=== PATIENT | female | born 1990 | race Caucasian/White ===

== ENCOUNTER 2022-06-19 01:35 | Emergency (ER) | payer MEDICAID ==
[2022-06-19] MEDS: Sodium Chloride 0.9% 1,000 ML IV ONE (02:23)
[2022-06-19] MEDS: Sodium Chloride 0.9% 2.5 ML Syringe FLUSH PRN (02:26)
[2022-06-19] MEDS: Sodium Chloride 0.9% 10 ML Syringe FLUSH PRN (02:26)
[2022-06-19] MEDS: Ketorolac 30 MG/ML SDV IVPUSH ONE (02:27)
[2022-06-19] MEDS: Ondansetron 4 MG/2 ML SDV IVPUSH ONE (02:27)
[2022-06-19] MEDS: HYDROmorphone 1 MG/ML Syringe IVPUSH ONE (02:29)
[2022-06-19 03:24] LABS: POTASSIUM,K 3.9 mmol/L (3.5-5.1)
== END 2022-06-19 04:41 | disposition home or self-care (01) ==
LOC: MW.ED 01:35
DX: R10.9 Unspecified abdominal pain (principal); I10 Essential (primary) hypertension; F17.210 Nicotine dependence, cigarettes, uncomplicated
CPT/HCPCS: 36415; 74176; 80053; 81001; 84443; 85025; 87086; 96361; 96374; 96375; 99284; J1170; J1885; J2405; J3490; J7030

== ENCOUNTER 2022-06-19 21:22 | Emergency (ER) | payer MEDICAID ==
[2022-06-19] MEDS ORDERED: HYDROmorphone 1 MG/ML Syringe IVPUSH ONE (22:06)
[2022-06-19] MEDS ORDERED: Ketorolac 30 MG/ML SDV IVPUSH ONE (22:06)
[2022-06-19] MEDS ORDERED: Ondansetron 4 MG/2 ML SDV IVPUSH ONE (22:06)
[2022-06-19] MEDS ORDERED: Sodium Chloride 0.9% 2.5 ML Syringe FLUSH PRN (22:06)
[2022-06-19] MEDS ORDERED: Sodium Chloride 0.9% 10 ML Syringe FLUSH PRN (22:06)
[2022-06-19] MEDS ORDERED: Sodium Chloride 0.9% 1,000 ML IV ONE (22:06)
[2022-06-19] MEDS ORDERED: Iopamidol 755 Mg/ML 100 ML Bottle IVPUSH ONE (22:39)
[2022-06-19 23:04] LABS: CARBON DIOXIDE,CO2 24.6 mmol/L (21.0-32.0); POTASSIUM,K 3.8 mmol/L (3.5-5.1)
[2022-06-19] MEDS ORDERED: fentaNYL 50 MCG/ML SDV IVPUSH ONE (23:42)
== END 2022-06-20 00:12 | disposition home or self-care (01) ==
LOC: MW.ED 21:22
DX: R10.9 Unspecified abdominal pain (principal); I10 Essential (primary) hypertension; Z79.899 Other long term (current) drug therapy
CPT/HCPCS: 36415; 74177; 80053; 81001; 83605; 83690; 85025; 87040; 96361; 96374; 96375; 99284; J1170; J1885; J2405; J3010; J3490; J7030; Q9967

== ENCOUNTER 2022-06-23 18:35 | Emergency (ER) | payer MEDICAID ==
[2022-06-23] MEDS ORDERED: Sodium Chloride 0.9% 1,000 ML IV ONE ×2 (18:44→20:07)
[2022-06-23] MEDS ORDERED: Acetaminophen 500 MG Tab PO ONE (18:47)
[2022-06-23] MEDS ORDERED: Ketorolac 30 MG/ML SDV IVPUSH ONE (19:24)
[2022-06-23 19:46] LABS: CARBON DIOXIDE,CO2 22.7 mmol/L (21.0-32.0); POTASSIUM,K 3.5 mmol/L (3.5-5.1)
[2022-06-23 19:46] LABS: CORONAVIRUS COVID-19 NAA NEGATIVE (NEGATIVE); INFLUENZA A NAA NEGATIVE (NEGATIVE); INFLUENZA B NAA NEGATIVE (NEGATIVE)
[2022-06-23] MEDS ORDERED: Iopamidol 755 MG/ML 500 ML Multipack Bottle IVPUSH STA (20:09)
[2022-06-23] MEDS ORDERED: cefTRIAXone 1 GM in Sodium Chloride 0.9% 50 ML IV ONE (20:43)
[2022-06-23] MEDS ORDERED: Cefdinir 300 MG Cap PO ONE (21:20)
== END 2022-06-23 23:30 | disposition home or self-care (01) ==
LOC: MW.ED 18:35
DX: J98.8 Other specified respiratory disorders (principal); D72.829 Elevated white blood cell count, unspecified; I10 Essential (primary) hypertension; R00.0 Tachycardia, unspecified; Z79.899 Other long term (current) drug therapy; Z20.822 Contact with and (suspected) exposure to COVID-19
CPT/HCPCS: 0240U; 36415; 71045; 71260; 74177; 80053; 81001; 81025; 83605; 83880; 85025; 85379; 87040; 87086; 93005; 96361; 96365; 96375; 99285; A9270; J0696; J1885; J7030; Q9967; 93010

== ENCOUNTER 2022-06-24 12:31 | Emergency (ER) | payer MEDICAID ==
[2022-06-24] MEDS ORDERED: Sodium Chloride 0.9% 10 ML Syringe FLUSH PRN (13:17)
[2022-06-24] MEDS ORDERED: Sodium Chloride 0.9% 2.5 ML Syringe FLUSH PRN (13:17)
[2022-06-24] MEDS ORDERED: Ondansetron 4 MG/2 ML SDV IVPUSH ONE (13:18)
[2022-06-24] MEDS ORDERED: Sodium Chloride 0.9% 1,000 ML IV ONE ×3 (13:18→17:05)
[2022-06-24] MEDS ORDERED: Loperamide 2 MG Cap PO STA (13:19)
[2022-06-24] MEDS ORDERED: Acetaminophen 500 MG Tab PO ONE (13:20)
[2022-06-24] MEDS ORDERED: Levofloxacin/Dextrose 5%-Water 750 MG in Premix Bag 1 BAG IV ONE (15:03)
[2022-06-24] MEDS ORDERED: Piperacillin/Tazobactam 4.5 GM in Sodium Chloride 0.9% 100 ML IV ONE (15:03)
[2022-06-24 15:16] LABS: CARBON DIOXIDE,CO2 23.7 mmol/L (21.0-32.0); POTASSIUM,K 3.7 mmol/L (3.5-5.1)
[2022-06-24] MEDS ORDERED: Sodium Chloride 0.9% 500 ML IV SCH (19:00)
[2022-06-24] MEDS ORDERED: Sodium Chloride 0.9% 500 ML IV STA (19:41)
== END 2022-06-24 21:30 ==
LOC: MW.ED 12:31
DX: A41.9 Sepsis, unspecified organism (principal); N13.1 Hydronephrosis with ureteral stricture, not elsewhere classified; I10 Essential (primary) hypertension; Z79.899 Other long term (current) drug therapy; Z20.822 Contact with and (suspected) exposure to COVID-19
CPT/HCPCS: 36415; 80053; 80305; 81003; 81025; 83605; 83690; 84484; 85025; 87040; 87635; 93005; 96361; 96365; 96366; 96375; 99285; A9270; J1956; J2405; J2543; J3490; J7030; J7040; 93010; U0002